=== PATIENT | female | born 1940 | race Caucasian/White ===

== ENCOUNTER 2018-05-24 01:00 | Inpatient (IN) ==
[2018-05-30 01:51] VITALS: O2SAT 95
[2018-05-30 08:24] VITALS: BP 117/59; RESP 16; TEMP 97.5
[2018-05-30 12:57] VITALS: PULSE 64
== END 2018-05-30 10:00 ==
LOC: NEPC 01:00 → NEDA 03:52 → HCPC 06:32 → HCVI 19:42 → HCPC 05-26 19:28
PROVIDERS: ADMIT Hospitalist; ATTEND Hospitalist